=== PATIENT | male | born 1935 | race Caucasian/White ===

== ENCOUNTER 2017-04-18 10:21 | Emergency (ER) | payer MEDICARE, OTHER ==
--- NOTE | 2017-04-18 11:45 | ERNOTE ---
Lower Extremity HPI - Narrative Date of Service: 04/18/17 - General Lower Extremities Pain: ankle: right Time Seen by Provider: 04/18/17 11:14 Source: patient, family, RN notes reviewed Exam Limitations: no limitations - Immun/Allergies/Home Medications Immunizations: IMMUNIZATION HX Immunizations Up to Date Yes Allergies/Adverse Reactions: Allergies Allergy/AdvReac Type Severity Reaction Status Date / Time No Known Allergies Allergy Unverified 04/18/17 10:40 Home Medications: HOME MEDICATIONS Albuterol Sulfate [Proair Respiclick] 90 mcg IH QID 04/18/17 [Last Taken Unknown ] Amlodipine Besylate 10 mg PO DAILY 04/18/17 [Last Taken Unknown] Budesonide/Formoterol Fumarate [Symbicort 160-4.5 Mcg Inhaler] 2 puff IH BID [Last Taken Unknown] Calcium Carbonate/Vitamin D3 [Calcium 500 mg Chewable Tablet] 1 each PO DAILY [Last Taken Unknown] Cyclobenzaprine HCl [Flexeril] 10 mg PO TID PRN 04/18/17 [Last Taken Unknown] Fosinopril Sodium 40 mg PO DAILY 04/18/17 [Last Taken Unknown] Gabapentin [Neurontin] 300 mg PO PRN 04/18/17 [Last Taken Unknown] Hydrochlorothiazide [Hydrodiuril] 25 mg PO DAILY 04/18/17 [Last Taken Unknown] Polyethylene Glycol 3350 [Miralax] 17 gm PO DAILY 04/18/17 [Last Taken Unknown] - History of Present Illness Narrative: 82 y/o male brought to the ED by his for a wound on his right medial ankle. They have been treating the wound for some time at home and it seemed to be doing better, but this morning at about 1030 they noticed maggots in the wound. They report that the maggots were not present at 0630 today. They were using Silvadene cream on the wound for some time, but discontinued this when it appeared to be healing. The patient reports difficulty walking and mild pain in the ankle. He receives [facility] routine [facility] [place]. It has been almost 6 months since he last saw his PCP. He has COPD and is on home oxygen. He denies being diabetic. He has what looks to be chronic venous stasis of the right lower leg and foot. His reports that he has had ulcers before that have healed with home treatment. His also states that the wound has not had an odor. Method of Injury: Reports: no apparent injury Prior Treament: Denies: recently seen, similar symptoms before, currently on antibiotics Review of Systems - Review of Systems Constitutional: Present: malaise, decreased activity level. Absent: fever, chills EYE: Present: no symptoms reported ENT: Present: no symptoms reported Respiratory: Absent: shortness of breath, cough Cardiology: Absent: chest pain, edema Gastrointestinal/Abdominal: Absent: nausea, vomiting, abdominal pain Genitourinary: Present: no symptoms reported Musculoskeletal: Present: joint pain. Absent: joint swelling Skin: Present: lesions. Absent: rash, change in color Neurological: Absent: headache, dizziness/light-headedness Endocrine: Present: no symptoms reported Hematologic/Lymphatic: Present: no symptoms reported Psych: Present: no symptoms reported - Patient's Past Medical History Patient History - Medical: No pertinent hx Patient History - Cardiac/Respiratory: COPD, Hypertension, Peripheral Vascular Disease, Home O2 Use Patient History - Cancer: No Hx of Cancer Patient History - Surgical Procedures: T & A - Social History Living Situations: spouse Smoking Status: Current every day smoker Have you smoked in the past 12 months: Yes Alcohol Use: heavy Drug Use: none - Immunizations Immunizations Up to Date: Yes Physical Exam - Physical Exam General Appearance: Present: wd/wn, alert, no apparent distress, other - Dishelveled, foul odor from ankle wound Respiratory: Present: no respiratory distress, no accessory muscle use, decreased breath sounds, rhonchi Cardiovascular/Chest: Present: regular rate, rhythm, no murmur. Absent: normal peripheral pulses Peripheral Pulses: N=norm/S=strong/W=weak/B=bound/A=absent: Dorsalis-pedis (R): Weak, Dorsalis-pedis (L): Weak Extremity Exam: Present: normal range of motion, extremity edema - mild edema to right foot, ankle, lower leg Neurological Exam: Present: alert, oriented, normal mood/affect, no motor/ sensory deficits Skin Exam: Present: warm/dry, other - Right lower leg erythematous ( reports not worse than usual), scaling skin on lower leg and foot, moderate sized inflammed ulcer to right medial ankle - completely filled with maggots ED Progress - Results and Orders Patient's Lab Results:: I have reviewed the patient's lab results. - Vital Signs Patient's Vital Signs:: I have reviewed the patient's vital signs. Vital Signs: Vital Signs 04/18/17 10:35 Temperature 36.7 C Pulse Rate 102 H Respiratory 18 Rate Blood Pressure 115/71 O2 Sat by Pulse 94 Oximetry - X-Ray X-Ray #1 X-Ray: ankle Interpretation: Interp. by me X-ray Comments: Right ankle - no acute osseous abnormality, soft tissue swelling surrounding ulceration at medial ankle - Progress/Reassessment Chief Complaint: Ankle Injury/ Pain Progress:: Unchanged Plan - Plan Plan: Lab results and xray discussed with patient, his and his daughter. Discussed IV antibiotics as an outpatient until the patient could get in to be seen at the [facility]. He shows no signs of systemic infection that would require inpatient treatment, but the wound will need further evaluation and intervention. Daughter asked [facility] We discussed that this may be advantageous in expediting his treatment rather than waiting until Thursday, although a transfer is not necessary on an emergent basis. The and daughter are planning to take the patient to the [facility] ED for evaluation this afternoon. Wound and blood cultures are pending. 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
[2017-04-18 12:01] LABS: Hematocrit 41.4 % (42.0-52.0); Hemoglobin 13.6 gm/dL (13.5-18.0); Mean Cell Volume 99.5 fl (78-100); Mean Corpuscular Hemoglobin 32.7 pg (27-31); Mean Corpuscular Hgb Conc 32.9 g/dl (32-36); Mean Platelet Volume 10.5 fl (6.0-9.5); Neutrophil % 75.9 % (42-75.0); Platelet Count 200 K/mm3 (150-450); Red Blood Count 4.16 M/mm3 (4.7-6.0); Red Cell Distribution Width 14.7 % (11.5-14.0); White Blood Count 10.6 K/mm3 (4.0-10.5)
[2017-04-18 12:12] LABS: Albumin * 4.1 gm/dl (3.4-5.0); Anion Gap 12.2 mmol/L (6.8-13.8); BUN/Creatinine Ratio 19.4 (9.0-21.6); Bilirubin, Total 0.8 mg/dL (0.0-1.1); Ca. Corrected For Albumin 9.2 mg/dL (8.4-10.2); Calcium * 9.6 mg/dL (7.9-10.9); Carbon Dioxide 31.7 mmol/L (24-32.6); Potassium 3.9 mmol/L (3.4-4.6); Total Protein 7.8 gm/dL (6.2-8.2)
[2017-04-18 14:19] VITALS: BP 115/73
== END 2017-04-18 12:45 | disposition home or self-care (01) ==
LOC: ER 10:21
DX: I83.013 Varicose veins of right lower extremity with ulcer of ankle (principal); L03.115 Cellulitis of right lower limb; B87.1 Wound myiasis; Z72.0 Tobacco use; J44.9 Chronic obstructive pulmonary disease, unspecified; I10 Essential (primary) hypertension